=== PATIENT | male | born 1940 | race Caucasian/White ===

== ENCOUNTER 2018-10-11 09:03 | Inpatient (IN) | payer OTHER ==
[~2018-10-11] VITALS: Ht 180.3 cm; Wt 91.0 kg
[2018-10-11 09:08] VITALS: Ht 180.3 cm; Wt 91.0 kg
--- NOTE | 2018-10-11 09:15 | NUR ---
DR. LOPES AND LYNN RENO MADE AWARE OF PT. EKG IN PROGRESS.
--- NOTE | 2018-10-11 09:21 | NUR ---
PT PRESENTS TO ED WITH C/O SOB AND SUBSTERNAL PAIN SINCE FRIDAY. STS THAT THE SOB INCREASED TODAY. STS HAVING SOME BILATERAL FLANK PAIN. DENIES NVD, DENIES HEADACHES, DENIES DIZZINESS. AT BEDSIDE. DR. LOPES AT BEDSIDE PERFORMING MSE
[2018-10-11] MEDS ORDERED: NOR5 PO (09:29)
[2018-10-11] MEDS ORDERED: NATEGLINIDE120 M1 PO (09:29)
[2018-10-11] MEDS ORDERED: HYDROCHLOROTHIA25 MG PO (09:29)
[2018-10-11] MEDS ORDERED: PRAVASTATIN SOD40 M1 PO (09:30)
[2018-10-11] MEDS ORDERED: NEU300 PO (09:30)
--- NOTE | 2018-10-11 09:31 | NUR ---
XRAY AT BEDSIDE
[2018-10-11 09:47] LABS: BASOPHIL % 0.2 % (0-2); PLATELET COUNT 335 x10^3mcL (130-400)
[2018-10-11 09:51] LABS: RED CELL DISTRIBUTION WIDTH 17.2 % (11.5-14.5)
[2018-10-11 10:08] LABS: ALKALINE PHOSPHATASE 115 U/L (46-116); ALT/SGPT 168 U/L (16-63); AMYLASE 63 U/L (25-115); AST/SGOT 133 U/L (15-37); BILIRUBIN TOTAL 0.8 mg/dL (0.20-1.00); CALCIUM 7.8 mg/dL (8.5-10.1); CHLORIDE SERUM 100 mmol/L (98-107); GLUCOSE SERUM 219 mg/dL (74-106); LIPASE 189 IU/L (73-393); MAGNESIUM 2.1 mg/dL (1.8-2.4); POTASSIUM SERUM 4.9 mmol/L (3.5-5.1); SODIUM SERUM 138 mmol/L (136-145)
--- NOTE | 2018-10-11 10:16 | NUR ---
PT RESTING AT BEDSIDE IN NAD. PATIENT STS SATISFACTION FROM THE BREATHING TREATMENT, STS HIS BREATHING HAS IMPROVED. BREATHING IS HAVING LABORED BREATHING, WITH BILATERAL CHEST RISE. PATIENT ABLE TO SPEAK IN FULL SENTENCES.
[2018-10-11 10:32] LABS: ALBUMIN 2.9 g/dL (3.4-5.0); CHOLESTEROL 102 mg/dL (<200); HDL CHOLESTEROL 25 mg/dL (40-60)
[2018-10-11 10:33] LABS: CREATININE SERUM 4.9 mg/dL (0.7-1.3)
--- NOTE | 2018-10-11 10:42 | NUR ---
PIA, OWNER SPA DIRECTOR, NOTIIFIED OF DR LOPES'S INTENTION TO ADMIT TO ICU.
[2018-10-11 10:50] LABS: UA SPECIFIC GRAVITY 1.025 (1.005-1.035); microscopic required? YES; urine erythrocyte 1+ (NEGATIVE)
[2018-10-11 11:01] LABS: AMPHETAMINE QUAL UR NONE DETECTED (See below)
--- NOTE | 2018-10-11 11:24 | NUR ---
PT RESTING AT BEDSIDE IN NAD
--- NOTE | 2018-10-11 11:42 | NUR ---
REPORT OFF TO LYNN NO
[2018-10-11 12:29] VITALS: BP 110/60
--- NOTE | 2018-10-11 13:04 | NUR ---
SPOKE TO DR PINEDA AT THIS TIME REGARDING MEDICATION ORDER FOR LOVENOX AND HEPARIN. PER DR PINEDA, OKAY TO GIVE ONE TIME DOSE LOVENOX FOR RIGHT NOW AND HOLD OFF ON HEPARIN AT THIS TIME. ALL NEEDS ATTENDED TO. WILL CONTINUE TO MONITOR
--- NOTE | 2018-10-11 13:59 | NUR ---
MCCLENDON CATHETER 16FR INSERTED AT THIS TIME. PATIENT TOLERATED WELL. OBTAINED MINIMAL URINE OUTPUT. URINE CLEAR YELLOW. SECURED WITH STATLOCK. MCCLENDON CATHETER DRAINING TO GRAVITY. ALL NEEDS ATTENDED TO. WILL CONTINUE TO MONITOR
--- NOTE | 2018-10-11 15:01 | NUR ---
DR CARY AWARE PATIENT TROPONIN 6.184 AT THIS TIME. WILL PROCEED ORDERED. WILL CONTINUE TO MONITOR. PATIENT DENIES CHEST PAIN, PRESSURE, DISCOMFORT AT THIS TIME.
--- NOTE | 2018-10-11 15:03 | NUR ---
PAGED DR PINEDA AT THIS TIME TO REPORT PATIENT LACTIC ACID 3.5 AT THIS TIME. AWAITING CALL BACK AT THIS TIME. WILL CONTINUE TO MONITOR
--- NOTE | 2018-10-11 15:16 | NUR ---
SPOKE TO DR PINEDA AT THIS TIME. REPORTED TO DR PINEDA PATIENT LACTIC ACID INCREASED TO 3.5 AT THIS TIME. PER DR PINEDA, TELEPHONE ORDER FOR A REPEAT LACTIC ACID TOMORROW 10/12/18 AT 0700AM. NO OTHER ORDERS REGARDING LACTIC ACID. PER DR PINEDA, TELEPHONE ORDER FOR ALBUTEROL Q4H PRN, PREDNISONE PO 20MG DAILY, AND AN INSULIN SLIDING SCALE. TELEPHONE ORDER READ BACK, CONFIRMED AND FOLLOWED THROUGH. ALL QUESTIONS AND CONCERNS ADDRESSED. ALL NEEDS ATTENDED TO. WILL CONTINUE TO MONITOR
--- NOTE | 2018-10-11 16:45 | NUR ---
PATIENT BLOOD SUGAR 335. 12 UNITS INSULIN REQUIRED. (SEE EMAR) ALL NEEDS ATTENDED TO. WILL CONTINUE TO MONITOR
[2018-10-11 17:12] VITALS: BP 109/62
[2018-10-11 17:27] VITALS: BP 110/60
--- NOTE | 2018-10-11 18:52 | NUR ---
PATIENT RESTING COMFORTABLY IN BED AT THIS TIME. NO APPARENT DISTRESS OR DISCOMFORT NOTED. 10L OXYMIZER IN PLACE. PATIENT TOLERATING WELL. IV PATENT AND INTACT. ALL QUESTIONS AND CONCERNS ADDRESSED. ALL NEEDS ATTENDED TO. SAFETY PRECAUTIONS MAINTAINED. WILL ENDORSE ALL CARE TO CHAINMAN NURSE
--- NOTE | 2018-10-11 19:30 | NUR ---
RECEIVED PT SITTING AT THE EDGE OF THE WITH AT BEDSIDE.NO ACUTE RESPIRATORY DISTRESS NOTED.PT @10L OXYMIZER O2SAT 92%.DENIES CP AND DISCOMFORT AT THIS TIME. BED IN LOWEST POSITION,CALL LIGHT WITHIN REACH. WILL CONTINUE TO MONITOR.
[2018-10-11 21:32] VITALS: BP 120/63
--- NOTE | 2018-10-12 05:26 | NUR ---
PT AWAKE.NO SOB NOTED.NO C/O PAIN AT THIS TIME. BED IN LOWEST POSITION,CALL LIGHT WITHIN REACH.WILL CONTINUE TO MONITOR.
[2018-10-12 05:31] VITALS: BP 101/58
[2018-10-12 05:33] LABS: PLATELET COUNT 314 x10^3mcL (130-400)
[2018-10-12 05:34] LABS: BASOPHIL % 0 % (0-2); RED CELL DISTRIBUTION WIDTH 16.5 % (11.5-14.5)
[2018-10-12 05:52] LABS: CALCIUM 7.8 mg/dL (8.5-10.1); CARBON DIOXIDE 20.2 mmol/L (21-32); CHLORIDE SERUM 100 mmol/L (98-107); GLUCOSE SERUM 228 mg/dL (74-106); MAGNESIUM 2.5 mg/dL (1.8-2.4); POTASSIUM SERUM 4.9 mmol/L (3.5-5.1); SODIUM SERUM 136 mmol/L (136-145); TRIGLYCERIDES 132 mg/dL (<150)
[2018-10-12 05:56] LABS: CHOLESTEROL 106 mg/dL (<200); CHOLESTEROL/HDL RATIO 4.2; HDL CHOLESTEROL 25 mg/dL (40-60)
--- NOTE | 2018-10-12 07:21 | NUR ---
CARE ENDORSED TO DAY NURSE SAAD.
--- NOTE | 2018-10-12 07:30 | NUR ---
RECEIVED PT FROM CLIENT ENGAGEMENT SPECIALIST LYNN. MADISYN. TELE#15. DENIES CHEST PAIN/PRESSURE. RESPIRATIONS EQUAL AND LABORED ON 10L OXYMIZER. PT STATES HE FEELS LIKE IT IS HARD TO CATCH HIS BREATH SOMETIMES. PT ENCOURAGED TO STAY IN BED AND CALL WHEN HE NEEDS HELP. MCCLENDON CATHETER IN PLACE DRAINING CLEAR YELLOW URINE. IV TO RAC SALINE LOCKED. NO REDNESS OR SWELLING NOTED. WILL CONTINUE TO MONITOR. CALL LIGHT IN REACH. BED IN LOWEST POSITION.
--- NOTE | 2018-10-12 09:07 | NUR ---
DR. MARMOLEJO AT BEDSIDE. PER DR. MARMOLEJO WOULD LIKE TO KEEP PT ONE MORE DAY AND DEPEDNING ON BREAD WRAPPING MACHINE FEEDER NOTE POSSIBLE D/C TOMORROW
--- NOTE | 2018-10-12 09:18 | NUR ---
TITRATED O2 TO 8L OXYMIZER. SPO2:96%. WILL CONT. TO MONITOR
--- NOTE | 2018-10-12 09:41 | NUR ---
PT SITTING UP IN BED. NO ACUTE RESP DISTRESS NOTED ON 10L OXYMIZER. PT RECEIVED BREATHING TREATMENT THIS AM. PT STATES HELPED WITH SOB. GIVEN PO MEDS. TOLERATED WELL. DR. CARY AT BEDSIDE. PER DR. CARY RECOMMENDS PT STAYING ANOTHER DAY TO MONITOR. IV FLUSHED WELL TO RAC. NO REDNESS OR SWELLING NOTED. WILL CONTINUE TO MONITOR. CALL LIGHT IN REACH. BED IN LOWEST POSITION.
[2018-10-12 10:35] VITALS: BP 115/70
--- NOTE | 2018-10-12 10:42 | NUR ---
PT SITTING UP AT BEDSIDE. NO ACUTE RESP DISTRESS NOTED ON 10L OXYMIZER. PT STATES HE DOES NOT FEEL COMFORTABLE USING BEDPAN. PT WOULD PREFER TO USE BEDSIDE COMMODE. BEDSIDE COMMODE GIVEN. GIVEN PO MEDS. TOLERATED WELL. ENCOURAGED PT TO USE CALL LIGHT WHEN IN NEED OF ASSISTANCE. CALL LIGHT IN REACH. WILL CONTINUE TO MONITOR.
--- NOTE | 2018-10-12 12:08 | NUR ---
PT SITTING UP IN BED. NO ACUTE RESP DSITRESS NOTED ON 10L OXYMIZER. PT DENIES SOB AT THIS TIME. BLOOD SUGAR WAS CHECKED WAS 272. GIVEN 9 UNITS OF REGULAR INSULIN PER SLIDING SCALE. WILL CONTINUE TO MONITOR. CALL LIGHT IN REACH. BED IN LOWEST POSITION.
[2018-10-12 13:46] VITALS: BP 109/68
[2018-10-12 16:52] VITALS: BP 110/70
--- NOTE | 2018-10-12 17:14 | NUR ---
PT SITTING UP IN BED. NO ACUTE RESP DISTRESS NOTED ON 10 L OXYMIZER. PT DENIES SOB AT THIS TIME. BLOOD SUGAR WAS CHECKED WAS 283. GIVEN 9 UNITS OF REGULAR INSULIN PER SLIDING SCALE. PT DENIES ANY PAIN AT THIS TIME. EMPTIED 550 OF JULIA YELLOW URINE FROM MCCLENDON CATHETER. WILL CONTINUE TO MONITOR. CALL LIGHT IN REACH. BED IN LOWEST POSITION.
--- NOTE | 2018-10-12 18:34 | NUR ---
PT SITTING UP AT BEDSIDE. FAMILY AT BEDSIDE. NO ACUTE RESP DISTRESS NOTED ON 10L OXYMIZER. DENIES SOB AT THIS TIME. IV TO RAC SALINE LOCKED. NO REDNESS OR SWELLING NOTED. MCCLENDON CATHETER IN PLACE DRAINING JULIA YELLOW URINE. NO REDNESS OR SWELLING NOTED. PT DENIES CHEST PAIN/PRESSURE. WILL ENDORSE TO MANDATE RETAIL SERVICE MERCHANDISER RN. CALL LIGHT IN REACH. BED IN LOWEST POSITION.
--- NOTE | 2018-10-12 19:20 | NUR ---
RECEIVED PT IN BED RESTING. NO ACUTE RESPIRATORY DISTRESS NOTED. DENIES ANY PAIN AT THIS TIME.IV SITE PATENT AND INTACT. BED IN LOWEST POSITION,CALL LIGTH WITHIN REACH. WILL CONTINUE TO MONITOR.
--- NOTE | 2018-10-12 21:11 | NUR ---
PT C/O BODY PAIN. SPOKE TO DR. MARMOLEJO. NEW ORDER GIVEN AND CARRIED OUT.
--- NOTE | 2018-10-12 21:29 | NUR ---
PT C/O BODYACHE 11/11. MEDICATED NORCO 5/325MG PO ORDERED. WILL CONTINUE TO MONITOR.
--- NOTE | 2018-10-13 05:17 | NUR ---
PT AWAKE.NO SOB NOTED.DENIES ANY PAIN AT THIS TIME. BED IN LOWEST POSITION,CALL LIGHT WITHIN REACH. WILL CONTINUE TO MONITOR.
[2018-10-13 05:49] VITALS: BP 116/77
[2018-10-13 07:01] LABS: PLATELET COUNT 321 x10^3mcL (130-400)
[2018-10-13 07:18] LABS: CALCIUM 7.8 mg/dL (8.5-10.1); CARBON DIOXIDE 22.1 mmol/L (21-32); CHLORIDE SERUM 99 mmol/L (98-107); GLUCOSE SERUM 221 mg/dL (74-106); POTASSIUM SERUM 4.5 mmol/L (3.5-5.1); SODIUM SERUM 136 mmol/L (136-145)
--- NOTE | 2018-10-13 07:18 | NUR ---
CARE ENDORSED TO DAY NURSE DIAN.
[2018-10-13 07:22] LABS: BASOPHIL % 0 % (0-2); RED CELL DISTRIBUTION WIDTH 16.5 % (11.5-14.5)
[2018-10-13 07:34] LABS: CREATININE SERUM 4.9 mg/dL (0.7-1.3)
--- NOTE | 2018-10-13 07:35 | NUR ---
RECIEVED PT FROM CONCRETE LABORER. PT AWAKE, ALERT. A/OX4. PT ON TELE #15 DENIES CHEST PAIN AT THIS TIME. PT ON OXIMIZER AT 8L. NO RESP DISTRESS NOTED. DIMINISHED LUNGS SOUNDS NOTED TO RIGHT LUNG. IV ACCESS RAC C/D/I. ACTIVE BOWEL SOUNDS NOTED. PT HAS MCCLENDON CATH. PERIPHERAL PULSES PALPABLE. EDEMA NOTED TO BLE 1+. PT NOTED TO HAVE GENERALIZED WEAKNESS. SAFETY MEASURES IN PLACE, BED LOW AND LOCKED. CALL LIGHT WITHIN REACH.
[2018-10-13 09:28] VITALS: BP 104/58
[2018-10-13 10:02] VITALS: BP 105/63
--- NOTE | 2018-10-13 10:20 | NUR ---
DR MARMOLEJO AT BEDSIDE WITH PT. OXIMIZER REMOVED. PT PLACED ON 3LNC AT THIS TIME. PT O2 SAT 88% NO RESPITORY DISTRESS NOTED. WILL MONITOR. DR HINTON.
--- NOTE | 2018-10-13 12:02 | NUR ---
PT RESTING IN NO ACUTE DISTRESS OR DISCOMFORT. DUE MEDS ADMINSTERED (SEE EMAR). NO SOB OR RESP DISTRESS NOTED AT THIS TIME.
[2018-10-13 13:56] VITALS: BP 115/69
--- NOTE | 2018-10-13 14:00 | NUR ---
VSS AT THIS TIME. PT O2 SAT 90-93% ON 3L NC. NO RESP DISTRESS NOTED. FAMILY AT BEDSIDE. ALL NEEDS MET AT THIS TIME.
--- NOTE | 2018-10-13 15:20 | NUR ---
Initial Nutrition Assessment: 226T/B WILLISYAHIRUR HR IA Dx: Non Q acute NJ/PNA/CHF PMHx: HTN, DM, Renal PSHx: cataract Labs: BG 221H, BUN 118H, CREAT 4.9H, AST 133H, ALT 168H, A1C 7.4H Meds: Aspirin, Ativan, coreg, D 10%, humulin, Lasix, lipitor Diet: Renal PO Intake: (10/12) breakfast 100%, other meals not documented Ht: 180.34 cm (71") Wt: 91 kg (200#) BMI: 28 kg/m2 (overweight) Bed scale: 202# IBW:172# (78 kg) %IBW: 116 UBW: 210# Age: 78/M Food Allergies: NKFA Skin: Intact Sunny: 19 Edema: 1+ BLE GI: Last BM: 10/12/18 Per H&P, Pt is a 78-year-old male came in complaining of progressively worse shortness of breath and substernal pressure type pain for last 4 days, unable to take it anymore he decided to come in for an evaluation. RDN Visit (10/13): Pt said that he did not really eat much of his breakfast this morning as he had poor appetite. However pt said that he ate 100% of his dinner last night. Pt had some questions regarding diabetic diet which were answered. Pt did not have any other questions at this time. Paged Philomena Ruiz to discuss recommendations. Waiting for call back. Discussed recommendations with furnace charger Liezle. Problem with: N/V/D/C: no Problems with: Chewing/Swallowing: no Current appetite: fair Recent wt change: pt weighed 210# but intentionally lost weight %wt change: 4% Vitamin/Supplement use: none Special diet at home: regular Physical activity: none Nutrition education given: Diabetes diet education using [place] handout on 'Type 2 DM nutrition therapy'. Concepts such as high fiber foods and portion control were discussed. Food-drug interactions: Lipitor-avoid grapefruit Education given: yes Estimated Nutritional Needs Based on ideal body weight 78 kg Energy: 6120-4446 kcal/d (25-30 kcal/kg) Protein: 78-93 g/d (1.0-1.2 g/kg)- Fluid: 8726-3993 ml/d (1 ml/kcal) or per doctor Nutrition Diagnosis 1. Impaired nutrient utilization related to endocrine and renal dysfunction as evidenced by A1C 7.4, CREAT 1.9 Intervention 1. Recommend [facility] ([facility]) diet. Monitor/Evaluate Goal: PO intake at least 75% of estimated needs Monitor: PO intake, Labs, GI function F/U in 7 days as low risk 10/20
--- NOTE | 2018-10-13 15:22 | NUR ---
1. Recommend Renal ([facility]) diet.
[2018-10-13 17:09] VITALS: BP 115/68
--- NOTE | 2018-10-13 18:23 | NUR ---
PT STABLE AT THIS TIME. FAMILY AT BEDSIDE. NO ACUTE DISTRESS OR DISCOMFORT NOTED. ALL NEEDS TENDED TO THROUGHOUT SHIFT. WILL CONTINUE TO MONITOR AND ENDORSE CARE TO PROCUREMENT CLERK.
--- NOTE | 2018-10-13 19:16 | NUR ---
PT RECEIVED A/O X4, ABLE TO MAKE NEEDS KNOWN. TELE #15, DENIES ANY CP/PRESSURE. BREATHING IS EVEN AND UNLABORED ON 3L NC, DENIES SOB, NO RESP DISTRESS NOTED. ABD SOFT AND NONDISTENDED, DENIES N/V. MCCLENDON CATH SECURED AND IN PLACE TO GRAVITY, DRAINING YELLOW URINE. GENERALIZED WEAKNESS. SKIN IS WARM AND DRY, INTACT. PT DENIES HAVING ANY PAIN AT THIS TIME. SL TO RAC, PATENT AND INTACT, SITE FREE FROM REDNESS OR SWELLING. PT AWAITING TRANSFER TO [facility], NO BED AVAILABLE AT THIS TIME. PT UPDATED ON POC. NO ACUTE DISTRESS NOTED. BED IN LOWEST SETTING, SIDE RAILS UP X2, CALL LIGHT WITHIN REACH. WILL CONT TO MONITOR.
[2018-10-13 21:20] VITALS: BP 120/72
--- NOTE | 2018-10-13 21:27 | NUR ---
RT AT BEDSIDE EDUCATING PT ON USE OF I.S. PT C/O 8/10 BACK PAIN AND GENERALIZED BODY PAIN, PRN NORCO GIVEN ORDERED. NO ACUTE DISTRESS NOTED. WILL CONT TO MONITOR.
--- NOTE | 2018-10-13 22:12 | NUR ---
dr. beach is paged to made aware that pt is accepted in [facility] room 326, report to be called at [phone]. waiting for callback
--- NOTE | 2018-10-13 22:55 | NUR ---
DR. CHU PAGED AT THIS TIME REGARDING AVAILABLE BED FOR PT AT [facility]. CALL BACK NUMBER LEFT. AWAITING CALLBACK AT THIS TIME.
--- NOTE | 2018-10-13 23:19 | NUR ---
SPOKE WITH ASHIA FROM [facility]. AUTH #[id number]. PER ASHIA, [facility] TRANSFER WILL ARRIVE WITHIN ONE HOUR.
--- NOTE | 2018-10-13 23:53 | NUR ---
REPORT GIVEN TO SILVER GREWAL RN AT [facility]. ALL QUESTIONS AND CONCERNS ADDRESSED.
--- NOTE | 2018-10-14 00:13 | NUR ---
CALLED PT'S EX- SANTI, PER PT'S REQUEST. UPDATED SANTI REGARDING PT'S TRANSFER TO [facility] TO ROOM #326. ALL QUESTIONS AND CONCERNS ADDRESSED.
--- NOTE | 2018-10-14 00:53 | NUR ---
EDUCATED PT ON DISCHARGE INSTRUCTIONS, PT VERBALIZES UNDERSTANDING. REPORT GIVEN TO [facility] STAFF, ALL QUESTIONS AND CONCERNS ADDRESSED. PT CHANGED INTO TRANSFER GOWN. TELE #15 REMOVED AND RETURNED TO AWNING CRAFTSPERSON. SL TO RAC, PATENT AND INTACT, SITE WNL. MCCLENDON CATH IN PLACE TO GRAVITY. PT TO BE TRANSFERRED TO [facility] TO ROOM #326 FOR CARDIAC CATH SCHEDULED FOR 10/14/18 @ 1330. PT LEFT UNIT IN NO ACUTE DISTRESS VIA GURNEY ACCOMPANIED BY [facility] STAFF. ALL PAPERWORK AND BELONGINGS WITH PT.
== END 2018-10-14 00:53 | disposition short-term general hospital (02) | DRG 280 ==
LOC: ED 09:03 → DU 11:12
PROVIDERS: Emergency Medicine; Internal Medicine Pulmonary Disease; ADMIT Internal Medicine
DX: I21.4 Non-ST elevation (NSTEMI) myocardial infarction (principal); I50.43 Acute on chronic combined systolic (congestive) and diastolic (congestive) heart failure; J96.21 Acute and chronic respiratory failure with hypoxia; I13.0 Hypertensive heart and chronic kidney disease with heart failure and stage 1 through stage 4 chronic kidney disease, or unspecified chronic kidney disease; N18.4 Chronic kidney disease, stage 4 (severe); J44.1 Chronic obstructive pulmonary disease with (acute) exacerbation; N17.9 Acute kidney failure, unspecified; E11.22 Type 2 diabetes mellitus with diabetic chronic kidney disease; I34.0 Nonrheumatic mitral (valve) insufficiency; E11.65 Type 2 diabetes mellitus with hyperglycemia; R31.9 Hematuria, unspecified; R74.0 Nonspecific elevation of levels of transaminase and lactic acid dehydrogenase [LDH]; E78.5 Hyperlipidemia, unspecified; Z87.891 Personal history of nicotine dependence; Z79.84 Long term (current) use of oral hypoglycemic drugs
CPT/HCPCS: 36600; 82962; 83880; 97116-GP; G0378; J1650; J1940; J1956; J2930; J3475; J7512; J7613; J7644; Q0092